=== PATIENT | female | born 1955 ===

== ENCOUNTER 2022-10-14 20:05 | Outpatient (CLI) | payer OTHER | END 2022-10-14 20:06 | disposition EMS.NT | LOC: EMS 20:05 | DX: Z76.89 Persons encountering health services in other specified circumstances (principal) ==

== ENCOUNTER 2022-10-14 20:47 | Emergency (ER) | payer OTHER ==
[2022-10-14 20:53] VITALS: BP 154/73
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
== END 2022-10-14 21:01 | disposition home or self-care (01) ==
LOC: ED 20:47
DX: Z02.89 Encounter for other administrative examinations (principal)
CPT/HCPCS: 99281; 99282